=== PATIENT | female | born 1965 | race Caucasian/White ===

== ENCOUNTER 2019-07-10 06:01 | Emergency (ER) | payer BC ==
--- NOTE | 2019-07-10 06:47 | EDM.PDOC ---
<William Lanier - Last Filed: 07/10/19 06:41> ED HPI GENERAL MEDICAL PROBLEM - General Chief Complaint: Abdominal Pain Stated Complaint: HERNIA Time Seen by Provider: 07/10/19 06:41 Source of Information: Reports: Patient History Limitations: Reports: No Limitations - History of Present Illness INITIAL COMMENTS - FREE TEXT/NARRATIVE: Bella is a 53 yo female with epigastric discomfort.,tightness and palpitations. She also endorses shortness of breath on ambulation. She is been unwell for almost a month.Was seen by Mis Castillo NP around [place] time, given a steroid for acute bronchitis. She has had a return of the wheezing this week,and the steroid was increased for another course. Overnight,she felt bloated,short of breath and restless. No mack chest pain,cough or fever. No diarrhea,nausea or vomiting. Bella has a h/o breast cancer,and had a lumpectomy 10 years ago. She ois otherwise healthy and does not smoke or drink. - Related Data Allergies Allergy/AdvReac Type Severity Reaction Status Date / Time No Known Allergies Allergy Verified 07/10/19 06:16 Home Meds: Home Meds Furosemide [Lasix] 20 mg PO DAILY #5 tab 07/10/19 [Rx] Omeprazole 20 mg PO DAILY #30 tablet. 07/10/19 [Rx] predniSONE [Prednisone] 20 mg PO DAILY 07/10/19 [History] Past Medical History Gastrointestinal History: Reports: Hiatal Hernia - Past Surgical History Oncologic Surgical History: Reports: Lumpectomy Social & Family History - Tobacco Use Smoking Status *Q: Never Smoker ED ROS GENERAL - Review of Systems Review Of Systems: Comprehensive ROS is negative, except as noted in HPI. ED EXAM, GI/ABD - Physical Exam Exam: See Below Exam Limited By: No Limitations General Appearance: Alert, WD/WN, No Apparent Distress Head: Atraumatic Neck: Normal Inspection Respiratory/Chest: No Respiratory Distress, Lungs Clear, Decreased Breath Sounds Cardiovascular: Tachycardia GI/Abdominal Exam: Normal Bowel Sounds, Distended, Tender (Episgastric area) Course - Vital Signs Last Recorded V/S: Last Vital Signs Temp 36.2 C 07/10/19 06:01 Pulse 107 H 07/10/19 07:32 Resp 18 07/10/19 07:32 BP 101/78 07/10/19 07:32 Pulse Ox 100 07/10/19 07:32 - Orders/Labs/Meds Orders: Active Orders 24 hr Category Date Time Status EKG Documentation Completion [RC] ASDIRECTED Care 07/10/19 06:40 Active Chest Abdomen Pelvis w Cont [CT] Stat Exams 07/10/19 06:40 Taken PRO B-TYPE NATRIUR PEPT,BNPPRO [CHEM] Stat Lab 07/10/19 08:42 Ordered EKG 12 Lead [EK] Routine Ther 07/10/19 06:39 Ordered Labs: Laboratory Tests 07/10/19 07/10/19 07/10/19 Range/Units 06:55 06:55 06:55 WBC 6.8 (4.5-12.0) X10-3/uL RBC 4.64 (3.23-5.20) x10(6)uL Hgb 12.8 (11.5-15.5) g/dL Hct 39.8 (30.0-51.3) % MCV 85.6 (80-96) fL MCH 27.6 L (27.7-33.6) pg MCHC 32.2 (32.2-35.4) g/dL RDW 14.7 (11.5-15.5) % Plt Count 202 (125-369) X10(3)uL MPV 11.1 H (7.4-10.4) fL Neut % (Auto) 71.7 (46-82) % Lymph % (Auto) 21.9 (13-37) % [place] % (Auto) 5.3 (4-12) % Eos % (Auto) 0 L (1.0-5.0) % Baso % (Auto) 1 (0-2) % Neut # (Auto) 4.9 (1.6-8.3) # Lymph # (Auto) 1.5 (0.6-5.0) # [place] # (Auto) 0.4 (0.0-1.3) # Eos # (Auto) 0.0 (0.0-0.8) # Baso # (Auto) 0.0 (0.0-0.2) # Sodium 144 (135-145) mmol/L Potassium 4.6 (3.5-5.3) mmol/L Chloride 108 (100-110) mmol/L Carbon Dioxide 27 (21-32) mmol/L BUN 23 H (7-18) mg/dL Creatinine 0.9 (0.55-1.02) mg/dL Est Cr Clr Drug Dosing 63.55 mL/min Estimated GFR (MDRD) > 60 (>60) BUN/Creatinine Ratio 25.6 H (9-20) Glucose 123 H (80-116) mg/dL Calcium 8.9 (8.6-10.2) mg/dL Total Bilirubin 1.2 (0.1-1.3) mg/dL AST 72 H (5-25) IU/L ALT 116 H (12-36) U/L Alkaline Phosphatase 66 (56-112) IU/L Troponin I 0.050 (<0.017-0.056) ng/mL Total Protein 7.1 (6.0-8.0) g/dL Albumin 3.8 (3.5-5.2) g/dL Globulin 3.3 g/dL Albumin/Globulin Ratio 1.2 Amylase (25-115) U/L 07/10/19 Range/Units 06:55 WBC (4.5-12.0) X10-3/uL RBC (3.23-5.20) x10(6)uL Hgb (11.5-15.5) g/dL Hct (30.0-51.3) % MCV (80-96) fL MCH (27.7-33.6) pg MCHC (32.2-35.4) g/dL RDW (11.5-15.5) % Plt Count (125-369) X10(3)uL MPV (7.4-10.4) fL Neut % (Auto) (46-82) % Lymph % (Auto) (13-37) % [place] % (Auto) (4-12) % Eos % (Auto) (1.0-5.0) % Baso % (Auto) (0-2) % Neut # (Auto) (1.6-8.3) # Lymph # (Auto) (0.6-5.0) # [place] # (Auto) (0.0-1.3) # Eos # (Auto) (0.0-0.8) # Baso # (Auto) (0.0-0.2) # Sodium (135-145) mmol/L Potassium (3.5-5.3) mmol/L Chloride (100-110) mmol/L Carbon Dioxide (21-32) mmol/L BUN (7-18) mg/dL Creatinine (0.55-1.02) mg/dL Est Cr Clr Drug Dosing mL/min Estimated GFR (MDRD) (>60) BUN/Creatinine Ratio (9-20) Glucose (80-116) mg/dL Calcium (8.6-10.2) mg/dL Total Bilirubin (0.1-1.3) mg/dL AST (5-25) IU/L ALT (12-36) U/L Alkaline Phosphatase (56-112) IU/L Troponin I (<0.017-0.056) ng/mL Total Protein (6.0-8.0) g/dL Albumin (3.5-5.2) g/dL Globulin g/dL Albumin/Globulin Ratio Amylase 13 L (25-115) U/L Meds: Medications Discontinued Medications Generic Name Dose Route Start Last Admin Trade Name Freq PRN Reason Stop Dose Admin Al Hydroxide/Mg Hydroxide 15 0 ml 07/10/19 07:06 07/10/19 07:30 ml/ Lidocaine HCl 15 ml PO 07/10/19 07:07 30 ml ONETIME ONE Administration Iopamidol 100 ml 07/10/19 07:08 07/10/19 07:27 Isovue-370 (76%) IV 07/10/19 07:09 100 ml . DIRECTED ONE Administration Departure - Departure Time of Disposition: 06:45 Disposition: Home, Self-Care 01 Clinical Impression: Cholelithiasis, GERD (gastroesophageal reflux disease) - Discharge Information Prescriptions: Furosemide [Lasix] 20 mg PO DAILY #5 tab Omeprazole 20 mg PO DAILY #30 tablet.dr Instructions: Cholelithiasis, [id number], Gastroesophageal Reflux Disease, Adult Referrals: Mati Mendez MD [Primary Care Provider] - Forms: ED Department Discharge Additional Instructions: Please read discharge instructions on cholelithiasis and acid reflux Avoid the beverages and food that was mentioned which can make your acid reflux worse Prilosec/Omeprazole 20 mg once daily Lasix/Furosemide 20 mg once every morning follow up with your doctor this coming week at clinic, call for appt. Sepsis Event Note - Evaluation Sepsis Screening Result: No Definite Risk - Focused Exam Vital Signs: Vital Signs Temp Pulse Resp BP Pulse Ox 07/10/19 07:32 107 H 18 101/78 100 07/10/19 06:01 36.2 C 111 H 18 118/93 H 100 Date Exam was Performed: 07/10/19 Time Exam was Performed: 06:41 - Problem List & Annotations (1) Epigastric pain SNOMED Code(s): 13529322 Code(s): R10.13 - EPIGASTRIC PAIN Status: Acute Current Visit: Yes (2) SOB (shortness of breath) SNOMED Code(s): 728973538 Code(s): R06.02 - SHORTNESS OF BREATH Status: Acute Current Visit: Yes - Problem List Review Problem List Initiated/Reviewed/Updated: Yes - My Orders Last 24 Hours: My Active Orders 07/10/19 08:42 PRO B-TYPE NATRIUR PEPT,BNPPRO [CHEM] Stat - Assessment/Plan Last 24 Hours: My Active Orders 07/10/19 08:42 PRO B-TYPE NATRIUR PEPT,BNPPRO [CHEM] Stat Plan: EKG revealed tachycardia. I will get a CT chest and abdomen.,along with some basic labs. <Holden Koch - Last Filed: 07/10/19 09:00> ED HPI GENERAL MEDICAL PROBLEM upper abd Pain Score (Numeric/FACES): 0 Course - Vital Signs Text/Narrative:: Labs/EKG-was discussed with patient and verbalized full understanding EKG-NSR Trop-neg Gi cocktail po x1 with significant relief of her epigastric pain Chest/Abd and pelvis CT-see result Departure - Departure Condition: Good Sepsis Event Note - Focused Exam Date Exam was Performed: 07/10/19 Time Exam was Performed: 08:59 - My Orders Last 24 Hours: My Active Orders 07/10/19 08:42 PRO B-TYPE NATRIUR PEPT,BNPPRO [CHEM] Stat - Assessment/Plan Last 24 Hours: My Active Orders 07/10/19 08:42 PRO B-TYPE NATRIUR PEPT,BNPPRO [CHEM] Stat
[2019-07-10] MEDS ORDERED: Alum Hydroxide/Mag Hydroxide 15 ML, Lidocaine 2% 15 ML PO ONE ×2 (07:06)
[2019-07-10] MEDS ORDERED: Iopamidol 755 Mg/ML 100 ML Bottle IV ONE (07:08)
== END 2019-07-10 09:03 | disposition home or self-care (01) ==
LOC: FB.ED 06:01
DX: K80.20 Calculus of gallbladder without cholecystitis without obstruction (principal); K21.9 Gastro-esophageal reflux disease without esophagitis; Z79.899 Other long term (current) drug therapy
CPT/HCPCS: 36415; 71260; 74177; 80053; 82150; 83880; 84484; 85025; 93005; 99285; A9270; Q9967